=== PATIENT | male | born 1975 | race Caucasian/White ===

== ENCOUNTER 2025-01-07 23:48 | Emergency (ER) | payer MEDICAID, OTHER ==
[~2025-01-07] VITALS: Ht 180.3 cm; Wt 77.1 kg
[~2025-01-07 23:48] MED LIST: HYDR-3974 PO
[2025-01-08] MEDS ORDERED: SULF1TAB48 PO (00:36)
[2025-01-08] MEDS ORDERED: CEPH-570 PO (00:36)
[2025-01-08] MEDS ORDERED: CEPHALEXIN MONOHYDRATE 500 MG CAPSULE PO ONE (00:39)
[2025-01-08] MEDS: CEPHALEXIN MONOHYDRATE 500 MG CAPSULE PO ONE (00:39)
[2025-01-08] MEDS: SULFAMETH/TRIMETH 800/160 MG 1 UDTAB TABLET PO ONE (00:39)
[2025-01-08] MEDS ORDERED: SULFAMETH/TRIMETH 800/160 MG 1 UDTAB TABLET ONE (00:39)
[2025-01-08 00:54] VITALS: BP 132/84; TEMP 97.8; O2SAT 98
== END 2025-01-08 00:54 | disposition home or self-care (01) ==
LOC: ER 23:57
DX: L03.116 Cellulitis of left lower limb (principal); M79.662 Pain in left lower leg; F17.200 Nicotine dependence, unspecified, uncomplicated; Z60.2 Problems related to living alone

== ENCOUNTER 2025-01-09 22:49 | Emergency (ER) | payer OTHER ==
[~2025-01-09 22:49] MED LIST changes: +CEPH-570 PO; +SULF1TAB48 PO
[2025-01-11] MEDS ORDERED: MAG HYDROX/AL HYDROX/SIMETH 30 ML UDC ONE (15:51)
== END 2025-01-10 01:27 | disposition left against medical advice (07) ==
LOC: ER 22:53
DX: L03.818 Cellulitis of other sites (principal); Z53.21 Procedure and treatment not carried out due to patient leaving prior to being seen by health care provider